=== PATIENT | female | born 1955 | race Asian ===

== ENCOUNTER 2020-04-12 15:35 | Emergency (ER) | payer OTHER ==
[~2020-04-12] VITALS: Ht 152.4 cm; Wt 58.5 kg
[2020-04-12 15:51] VITALS: BP 208/84; Ht 152.4 cm; Wt 58.5 kg
== END 2020-04-12 17:40 | disposition home or self-care (01) ==
LOC: ED 15:35
DX: S06.0X0A Concussion without loss of consciousness, initial encounter (principal); S02.2XXA Fracture of nasal bones, initial encounter for closed fracture; S80.212A Abrasion, left knee, initial encounter; I10 Essential (primary) hypertension; E11.9 Type 2 diabetes mellitus without complications; E03.9 Hypothyroidism, unspecified; E78.5 Hyperlipidemia, unspecified; W18.09XA Striking against other object with subsequent fall, initial encounter; Y93.89 Activity, other specified; Y92.89 Other specified places as the place of occurrence of the external cause; Y99.8 Other external cause status
CPT/HCPCS: 82962; 90715; Q0092